=== PATIENT | male | born 1965 | race Caucasian/White ===

== ENCOUNTER → 2018-04-09 | Outpatient (CLI) | payer OTHER ==
--- NOTE | 2018-04-09 16:46 | DIAGNOSTIC IMAGING REPORT ---
MRI OF THE LUMBAR SPINE WITHOUT CONTRAST CLINICAL HISTORY: Low back pain radiating into right lower extremity. COMPARISON STUDY: Lumbar spine radiographs March 21, 2018. TECHNIQUE: Utilizing a 1.5 Tianna magnet and dedicated coil, multiplanar, multiecho imaging of the lumbar spine was performed without IV contrast. FINDINGS: For purposes of numbering, the L5-S1 disc space is assigned to axial image 27 of 30. There is 3 mm of retrolisthesis of L3 on L4. Vertebral body heights are maintained. There are discogenic changes with disc space narrowing at L3-L4. There is no suspicious marrow replacement. There is no intracanalicular mass or fluid collection. The conus terminates at the upper L2 level. Paravertebral soft tissues are unremarkable. Rehabilitation Clerk images demonstrate an apparent 5.3 cm hyperintense focus within the inferior right hepatic lobe which is probably artifactual. There is an equivocal 1.4 cm round focus within the pancreatic tail. L1-2: The central canal and neural foramen are patent. L2-3: There is disc space narrowing with disc bulge, ligamentous hypertrophy and facet arthrosis. There is mild narrowing of the central canal, lateral recesses. Neural foramen are patent. L3-4: There is disc bulge with a superimposed right paracentral disc protrusion that results in moderate narrowing of the right aspect of the canal and right lateral recess. There is mild narrowing of both neural foramen. L4-5: There is disc space narrowing and facet arthrosis. Central canal is patent. There is mild narrowing of both neural foramen. L5-S1: Central canal and neural foramen are patent. IMPRESSION: 1. Disc bulge with superimposed right paracentral disc protrusion at L3-L4 that results in moderate to severe narrowing of the right lateral recess with mass effect upon the descending right L4 nerve root. 2. Mild central canal and lateral recess narrowing at L2-L3 due to disc bulge. 3. Equivocal 5.3 cm hyperintense focus within the right hepatic lobe and 1.4 cm round density within the pancreatic tail shown only on product development director images. These findings are probably artifactual however a follow-up contrast-enhanced CT of the abdomen is recommended to exclude true abnormalities. Electronically signed by: Jarek Key M.D. 04/09/2018 4:45 PM Dictated Date/Time: 04/09/2018 4:35 PM
== END | disposition home or self-care (01) ==
LOC: C.MRIBC 15:34
PROVIDERS: ATTEND Orthopaedic Surgery
DX: M54.9 Dorsalgia, unspecified (principal); M79.604 Pain in right leg; M51.26 Other intervertebral disc displacement, lumbar region; R93.2 Abnormal findings on diagnostic imaging of liver and biliary tract

== ENCOUNTER 2019-05-10 10:00 | Inpatient (IN) ==
[2019-05-10] MEDS ORDERED: dilTIAZem HCl 5 MG/ML 5 ML VIAL IV STA (10:33)
--- NOTE | 2019-05-10 10:59 | XRay Report ---
XR chest 1V portable CLINICAL HISTORY: 54 years-old Male presenting with tachycardia, atrial fibrillation. TECHNIQUE: Portable upright AP view of the chest was obtained. COMPARISON: None. FINDINGS: Cardiac silhouette borderline enlarged. No focal opacity. No large effusion or pneumothorax. Osseous structures normal. Upper abdomen normal. IMPRESSION: 1. Borderline cardiomegaly. No other convincing evidence of acute cardiopulmonary disease. Electronically signed by: Rik Pinon M.D. 05/10/2019 10:58 AM
[2019-05-10 11:09] LABS: Alanine Aminotransferase 38 U/L (12-78); Albumin Level 4.6 gm/dl (3.4-5.0); Aspartate Aminotransferase 34 U/L (15-37); BUN Creatinine Ratio 12.9 (10-20); Blood Urea Nitrogen 15 mg/dl (7-18); Calcium 9.6 mg/dl (8.5-10.1); Carbon Dioxide 24 mmol/L (21-32); Chloride 107 mmol/L (98-107); Creatinine Clr Calc Pharmacy 96.8 ml/min; Est GFR (African American) 81.1; Glucose 88 mg/dl (70-99); Magnesium 2.2 mg/dl (1.8-2.4); Potassium 4.1 mmol/L (3.5-5.1); Sodium 140 mmol/L (136-145)
[2019-05-10 11:10] LABS: Basophils # (auto) 0.01 K/uL (0-0.2); Basophils % (auto) 0.1 %; Eosinophils # (auto) 0.02 K/uL (0-0.5); Eosinophils % (auto) 0.2 %; Hematocrit (blood only) 49.2 % (42-52); Hemoglobin 17.2 g/dL (14.0-18.0); Immature Granulocytes # (auto) 0.02 K/uL (0.00-0.02); Immature Granulocytes % (auto) 0.2 %; Lymphocytes # (auto) 1.11 K/uL (1.2-3.4); Lymphocytes % (auto) 12.4 %; Mean Corpuscular Hemoglobin 30.8 pg (25-34); Monocytes # (auto) 0.54 K/uL (0.11-0.59); Neutrophils # (auto) 7.26 K/uL (1.4-6.5); Neutrophils % (auto) 81.1 %; Platelet Count 154 K/uL (130-400); RDW Coefficient of Variation 12.5 % (11.5-14.5); RDW Standard Deviation 39.9 fL (36.4-46.3); Red Blood Count 5.59 M/uL (4.7-6.1); White Blood Count 8.96 K/uL (4.8-10.8)
[2019-05-10 11:14] LABS: Albumin Globulin Ratio 1.5 (0.9-2); Alkaline Phosphatase 68 U/L (45-117); Bilirubin,Total 0.9 mg/dl (0.2-1); Globulin 3.1 gm/dl (2.5-4.0); Thyroid Stimulating Hormone 0.941 uIu/ml (0.300-4.500); Total Protein 7.7 gm/dl (6.4-8.2); Troponin I < 0.015 ng/ml (0-0.045)
[2019-05-10 11:14] LABS: INR 1.1 (0.9-1.1); Prothrombin Time 10.8 Seconds (9.0-12.0)
[2019-05-10] MEDS ORDERED: dilTIAZem HCL 125 MG in DEXTROSE 5% 100 ML IV SCH (13:00)
[2019-05-10] MEDS ORDERED: Heparin IV Standard *NO* Bolus IV ONE (13:29)
[2019-05-10] MEDS ORDERED: HEPARIN SODIUM/DEXTROSE 25,000 UNITS/500 ML BAG IV SCH (13:30)
--- NOTE | 2019-05-10 13:37 | History & Physical Report ---
Date of Service May 10, 2019 Assessment & Plan (1) Atrial fibrillation with RVR: This is a 54-year-old male who has significant PMH of HTN, HLD, chronic back pain, MEY, obesity, gout who presents to [facility] from preop secondary to new onset A. fib. Unknown duration CBC, CMP, Mag, TSH relatively unremarkable CXR cardiomegaly but no acute process Received IV Diltiazem 10mg in ED, HRs 80-110s Initiated on Dilt gtt admit to PCU continue diltiazem gtt and wean as able start metoprolol 25mg q6h with hold parameters IV Heparin gtt ordered - chadsvasc 1, but given unknown duration will anticoagulate echocardiogram ordered consult cardiology (2) HTN (hypertension): blood pressure controlled, 129/98 continue felodipine hold lisinopril/hctz until re evaluated in a.m. initiating metoprolol tartrate for rate control (3) HLD (hyperlipidemia): continue statin (4) Gout: continue allopurinol (5) Lumbar radiculopathy: continue tramadol bid, cymbalta, gabapentin (6) Positional sleep apnea: follows [facility] sleep medicine to follow up 05/30/19, not on CPAP at this time (7) DVT prophylaxis: SCD/TEDS, IV Heparin Disposition: Admit to tele, discharge home when able Follow up: PCP Dr. Jasso upon discharge, appropriate cardiology follow up, follow up sleep medicine to determine need for CPAP Patient was seen and examined in collaboration with Dr. Mariscal, please see addendum Starting 05/11/19 patient will be under the care of Dr. Still History of Present Illness Chief Complaint: referred from pre op 2/2 to new onset afib with RVR. Primary Care Provider: Garcia Jasso, DO This is a 54-year-old male who has significant PMH of HTN, HLD, chronic back pain, MEY, obesity, gout who presents to [facility] from preop secondary to new onset A. fib. is at bedside. Last evening patient performed prep for colonoscopy who presented for procedure today. Was found to be in A. fib with RVR and therefore referred to ED. He is asymptomatic. Denies history of arrhythmia or A. fib in the past. Denies fever, chills, sweats, lightheadedness, dizziness, syncope, chest pain, palpitations, shortness of breath, cough, nausea, vomiting, diarrhea, abdominal pain. He did have loose bowels last night secondary to prep. He denies ETOH use, recreational drug use, recent travel. Denies FH of arrhythmia or ID, but father when patient was only 4 due to, "heart failure." Allergies Allergy/AdvReac Type Severity Reaction Status Date / Time No Known Allergies Allergy Unverified 05/10/19 10:39 Home Medications Home Medications Medication Instructions Recorded Confirmed Type allopurinol 300 mg tablet 300 mg PO QAM 04/19/18 05/10/19 History simvastatin 20 mg tablet 20 mg PO QPM 04/19/18 05/10/19 History tramadol 50 mg tablet 50 mg PO BID tab 04/19/18 05/10/19 History duloxetine [Cymbalta] 20 mg PO DAILY 05/10/19 05/10/19 History felodipine 2.5 mg PO DAILY 05/10/19 05/10/19 History gabapentin 300 mg PO TID 05/10/19 05/10/19 History lisinopril-hydrochlorothiazide 1 tab PO DAILY 05/10/19 05/10/19 History Past Med/Surg History Medical History Positional sleep apnea (Chronic) Lumbar disc herniation (Chronic) Right L3-L4 disc herniation impinging on the right L4 nerve root Lumbar radiculopathy (Chronic) Gout (Acute) HTN (hypertension) (Acute) Surgical History History of colonoscopy (Chronic) History of removal of cyst (Chronic) Family History Father Congestive heart failure (CHF) Mother Breast cancer Social History Preferred Language: Romanian Communication Ability: Effective 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: No Beliefs That Will Affect Care: None marital status: Current Living Situation: Spouse current occupational status: employed 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 Other Information That Helps Us Care for You: No Feels Safe at Home: Yes Safety Concerns: Feels Safe At This Time Smoking Status: Never smoker Do You Dip or Chew Tobacco: No ; Hx Alcohol Use: No Hx Substance Use: No Review of Systems Review of Systems: All systems reviewed & are unremarkable except as noted in HPI & below Physical Exam Physical Exam: Constitutional: WD/WN, Tall, Male, vitals as above, NAD, sitting up in bed, pleasant, conversing easily Head: Normocephalic, Atraumatic Eyes: PERRL, conjunctivae normal, anicteric sclerae ENMT: external ear and nose normal, oropharynx normal Neck: trachea midline, no thyromegaly normal visual inspection Respiratory: normal respiratory effort, lungs clear to auscultation, no wheeze, rales, rhonchi. Normal insp/exp effort, no accessory muscle use Cardiovascular: IRR/IRR, no murmur, no edema Vessels: no JVD or carotid bruit Chest: normal inspection of chest Abdomen: normal bowel sounds, soft, nontender, no hepatosplenomegaly Musculoskeletal: no cyanosis or clubbing, extremities motor strength 5/5 Skin: no rashes, warm and dry normal turgor Neurologic: PERRL, EOMI, accommodation nl, no face palsy, no dysarthria CN's II-XI intact bilaterally and moves all extremities Psychiatric: A+Ox3, euthymic affect Lymphatic: no cervical or axillary lymphadenopathy : deferred Results & Data Vital Signs (Past 12 Hours) Vital Signs Pulse Pulse Resp BP BP Pulse Ox 05/10/19 12:46 89 15 120/89 99 05/10/19 12:00 82 14 124/98 98 05/10/19 11:30 82 15 123/83 98 05/10/19 11:07 108 H 16 137/97 97 05/10/19 10:14 87 18 139/99 98 Laboratory Results Short CBC 05/10/19 05/10/19 Range/Units 10:31 10:47 WBC 8.96 (4.8-10.8) K/uL Hgb 17.2 (14.0-18.0) g/dL Hct 49.2 (42-52) % Plt Count 154 (130-400) K/uL Creatinine 1.16 (0.6-1.4) mg/dl TSH 0.941 (0.300-4.500) uIu/ml BMP 05/10/19 10:31 Sodium 140 Potassium 4.1 Chloride 107 Carbon Dioxide 24 BUN 15 Creatinine 1.16 Glucose 88 Calcium 9.6 Cardiac Enzymes 05/10/19 Range/Units 10:31 Troponin I < 0.015 (0-0.045) ng/ml Liver Function 09/27/19 Range/Units 10:31 Total Bilirubin 0.9 (0.2-1) mg/dl AST 34 (15-37) U/L ALT 38 (12-78) U/L Alkaline Phosphatase 68 (45-117) U/L Albumin 4.6 (3.4-5.0) gm/dl Diagnostic Findings CXR: IMPRESSION: 1. Borderline cardiomegaly. No other convincing evidence of acute cardi opulmonary disease. Medications Administered Discontinued Medications Diltiazem HCl (Cardizem) 10 mg IV NOW STA Stop: 05/10/19 10:34 Last Admin: 05/10/19 11:08 Dose: 10 mg Documented by: [id number] Cosigned by: [id number] ECG Rate (beats per minute): 114 Rhythm: atrial fibrillation Code Status & VTE Plan Code Status Full Code VTE Prophylaxis Plan VTE Prophylaxis will be ordered: Yes Supervising Physician Co-Signing Physician Notes I saw this patient with the physician nurses assistant, I participated in the history, physical, review of systems, and physical exam. I reviewed the medications with the patient and the physician nurses assistant and helped reconcile the medications. I helped take a detailed family and social history as well. I formulated the assessment and plan personally with the physician nurses assistant and went over it with the patient. ROS-No Headache, No Visual Changes, No Nausea, No Vomiting, No Fever, No Chills, No Neck Pain or Stiffness, No Chest Pain, No Palpitations, No SOB, No MEDRANO, No Cough, No Sputum, No Wheezing, No Abdominal Pain, No Diarrhea, No Hematemesis, No Hemoptysis, No Unexpected Weight Loss, No Flank pain, No Melena, No Hematochezia, No Frequency, No Urgency, No Burning, No Hematuria, No Rashes, No Diaphoresis. Appetite is Normal Physical Exam Gen-AAO x 3, NAD, Afebrile Head-NCAT, EOMI, PERRLA, Anicteric Sclera, No Posterior Pharyngeal Erythema Neck-Supple, No JVD, No Thyromegaly, No Masses, No LAD, No Bruits Lungs-Clear to Auscultation Bilaterally, No Rales, No Rhonchi, No Wheezing, No Crepitus Chest-Irreg, Irreg, No S4, +S1, +S2, No S3, No Murmurs, No Rubs, No Gallops, + Ectopy Abdomen-Soft, Bowel Sounds Present, Non Tender, Non Distended, No Hepatomegaly, No Splenomegaly, No Palpable Masses, No Rebound, No Rigidity, No Guarding Musculoskeletal-Full Range of Motion Bilaterally, No CVAT Extremities-No Cyanosis, No Clubbing, No Edema Nuero-Cranial Nerves II-XII grossly intact, Motor WNL, DTRs WNL, Strength WNL, Non Focal Psych-Normal Mood
[2019-05-10] MEDS ORDERED: MAGNESIUM HYDROXIDE SUSP 30 ML UDC PO PRN (14:53)
[2019-05-10] MEDS ORDERED: ALUMINUM/MAGNESIUM SUSP 30 ML UDC PO PRN (14:53)
[2019-05-10] MEDS ORDERED: POLYETHYLENE (MIRALAX) 17 GM PACK PO PRN (14:53)
[2019-05-10] MEDS ORDERED: ACETAMINOPHEN 325 MG TAB PO PRN (14:53)
[2019-05-10] MEDS ORDERED: ONDANSETRON INJ 2 MG/ML 2 ML VIAL IV PRN (14:53)
--- NOTE | 2019-05-10 15:58 | Cardiology Consultation ---
Date of Consultation May 10, 2019 Assessment & Plan (1) Atrial fibrillation with RVR: Is difficult to determine the duration of his atrial fibrillation. He had a previous EKG in 2016 that revealed sinus bradycardia. He does not have any subjective symptoms. It could be that this occurred with his colonoscopy prep overnight last night, or perhaps he has had atrial fibrillation for a longer duration. He has had recent outpatient visits at which time an irregular heartbeat had not been detected. We will proceed with an echocardiogram for assessment of structural heart disease. EKG reveals no significant repolarization changes, and he certainly has no symptoms suggestive of recent angina. Rate control: Patient is currently on a low-dose diltiazem infusion with adequately controlled heart rates in the range of 98 bpm. Metoprolol tartrate 25 mg p.o. every 6 has been initiated and will be adjusted as necessary based on response. Stroke prophylaxis: His [id number] score is 1 for hypertension predicting a low risk of cardio embolic stroke however it is difficult to know at this point if this is going to be an episode of lone atrial fibrillation or an ongoing issue. Therefore systemic anticoagulation is recommended pending further assessment including his echocardiogram to rule out cardiomyopathy. I [facility], and the anticipated [id number] cost for a 30-day supply of Eliquis 5 mg twice daily is $42. The patient states that that is acceptable. Therefore I am going to discontinue his heparin infusion at 2190 and transition him to Eliquis 5 mg twice daily. The patient's electrolytes are within normal limits. Plan on observing him on telemetry overnight. (2) HTN (hypertension): Continue prior to hospital dose of felodipine. His lisinopril/HCTZ has been placed on hold pending further assessment. Metoprolol tartrate added for rate control and blood pressure control. (3) HLD (hyperlipidemia): Continue prior to arrival of simvastatin. History of Present Illness Attending Physician: Jeff Mariscal DO History of Present Illness Rubén Simpson is a 54 year old male seen in cardiology consultation per the request of Niesha Zavlaa PA-C [facility] for the evaluation of atrial fibrillation. The patient presented to [facility] today for a routine screening colonoscopy and was found to be in atrial fibrillation on the gambling monitor. A 12-lead EKG was obtained at 854 this m orning that confirmed the presence of atrial fibrillation with rapid ventricular response at 123 bpm. The patient was referred for evaluation in the emergency room at the [facility]. The patient states he is asymptomatic from a cardiac perspective. He describes himself as being physically active at baseline he walks his dog, forms yardwork, and walks on the treadmill 3-4 times per week. The patient's past medical history is notable for hypertension. He is currently being evaluated for sleep apnea due to his history of snoring,. He had recently been seen by sleep medicine and a sleep study is tentatively scheduled but has not been completed yet. He takes medication for dyslipidemia. Family history: Patient's mother due to cancer at age 75, he does not know what the primary source was but she had significant cancer that had spread throughout her body at the time of when she . The patient's father at age 43 apparently of congestive heart failure. The patient was 4 years old and this occurred and he does not know any details. The patient has siblings without any issues of heart disease. 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 Allergies Allergy/AdvReac Type Severity Reaction Status Date / Time No Known Allergies Allergy Unverified 05/10/19 10:39 Home Medications Home Medications Medication Instructions Recorded Confirmed Type allopurinol 300 mg tablet 300 mg PO QAM 04/19/18 05/10/19 History simvastatin 20 mg tablet 20 mg PO QPM 04/19/18 05/10/19 History tramadol 50 mg tablet 50 mg PO BID tab 04/19/18 05/10/19 History duloxetine [Cymbalta] 20 mg PO DAILY 05/10/19 05/10/19 History felodipine 2.5 mg PO DAILY 05/10/19 05/10/19 History gabapentin 300 mg PO TID 05/10/19 05/10/19 History lisinopril-hydrochlorothiazide 1 tab PO DAILY 05/10/19 05/10/19 History Patient History Medical History Positional sleep apnea (Chronic) Lumbar disc herniation (Chronic) Right L3-L4 disc herniation impinging on the right L4 nerve root Lumbar radiculopathy (Chronic) Gout (Acute) HTN (hypertension) (Acute) Surgical History History of colonoscopy (Chronic) History of removal of cyst (Chronic) Family History Father Congestive heart failure (CHF) Mother Breast cancer Social History Preferred Language: [place]ese Communication Ability: Effective 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 Beliefs That Will Affect Care: None marital status: Current Living Situation: Spouse current occupational status: employed 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 Other Information That Helps Us Care for You: No Feels Safe at Home: Yes Safety Concerns: Feels Safe At This Time Smoking Status: Never smoker Do You Dip or Chew Tobacco: No ; Hx Alcohol Use: No Hx Substance Use: No Review of Systems Review of Systems: All systems reviewed & are unremarkable except as noted in HPI & below Physical Exam Physical Exam: Temp Pulse Resp BP Pulse Ox 36.9 C 100 H 18 135/84 99 05/10/19 14:53 05/10/19 14:53 05/10/19 14:53 05/10/19 14:53 05/10/19 14:53 Constitutional: WD/WN, vitals as above Respiratory: normal respiratory effort, lungs clear to auscultation Cardiovascular: Rate/Rhythm: + irregularly irregular Heart Sounds: no murmur and no cardiac rub Vessels: no JVD Gastrointestinal (Abdomen): normal bowel sounds, soft, nontender, no hepatosplenomegaly Neurologic: PERRL, EOMI, accommodation nl, no face palsy, no dysarthria Results & Data Vital Signs (Past 12 Hours) Vital Signs Temp Pulse Pulse Resp BP BP Pulse Ox 05/10/19 14:53 36.9 C 100 H 18 135/84 99 05/10/19 14:45 120 H 15 137/90 98 05/10/19 14:30 112 H 15 122/75 99 05/10/19 14:15 105 H 20 117/93 96 05/10/19 14:00 102 H 23 129/98 99 05/10/19 12:46 89 15 120/89 99 05/10/19 12:00 82 14 124/98 98 05/10/19 11:30 82 15 123/83 98 05/10/19 11:07 108 H 16 137/97 97 05/10/19 10:14 87 18 139/99 98 Laboratory Results Cardiac Enzymes 05/10/19 Range/Units 10:31 AST 34 (15-37) U/L Troponin I < 0.015 (0-0.045) ng/ml Coagulation 05/10/19 05/10/19 Range/Units 10:47 10:47 PT 10.8 (9.0-12.0) Seconds APTT 28.0 (21.0-31.0) Seconds CBC 05/10/19 Range/Units 10:47 WBC 8.96 (4.8-10.8) K/uL RBC 5.59 (4.7-6.1) M/uL Hgb 17.2 (14.0-18.0) g/dL Hct 49.2 (42-52) % Plt Count 154 (130-400) K/uL Neut # (Auto) 7.26 H (1.4-6.5) K/uL Lymph # (Auto) 1.11 L (1.2-3.4) K/uL [place] # (Auto) 0.54 (0.11-0.59) K/uL Eos # (Auto) 0.02 (0-0.5) K/uL Baso # (Auto) 0.01 (0-0.2) K/uL Comprehensive Metabolic Panel 05/10/19 Range/Units 10:31 Sodium 140 (136-145) mmol/L Potassium 4.1 (3.5-5.1) mmol/L Chloride 107 (98-107) mmol/L Carbon Dioxide 24 (21-32) mmol/L BUN 15 (7-18) mg/dl Creatinine 1.16 (0.6-1.4) mg/dl Glucose 88 (70-99) mg/dl Calcium 9.6 (8.5-10.1) mg/dl AST 34 (15-37) U/L ALT 38 (12-78) U/L Alkaline Phosphatase 68 (45-117) U/L Total Protein 7.7 (6.4-8.2) gm/dl Albumin 4.6 (3.4-5.0) gm/dl Intake and Output 05/10/19 05/10/19 05/10/19 06:59 14:59 22:59 Other: Weight 114 kg Patient Weight 05/11/19 06:59 Weight 114 kg
[2019-05-10] MEDS: METOPROLOL TARTRATE 25 MG TAB PO SCH ×2 (16:29→21:22)
--- NOTE | 2019-05-10 17:49 | Emergency Department Note ---
Entered by Ney Jordan acting as a scribe for History of Present Illness General Chief complaint: Arrhythmia/Palpitations Stated complaint: AFIB Source: patient History of Present Illness Onset (ago): hour(s) (this morning) Location: chest Pain Consistency: + other (episode) Maximum Pain Intensity: 5 Quality: + other (arrhythmia ) Associated symptoms: + headaches (slight) and + other (+dehydration; - palpitations); no chest pain and no shortness of breath The patient is a 54 year old male, with past medical history of hypertension, who presents to the Emergency Room with complaints of an episode of arrhythmia that was first noticed 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 The patient states he was at his grain unloader's office for a routine colon oscopy when the arrhythmia was first noted. The patient denies chest pain, feeling palpitations, or shortness of breath. The patient notes a slight headache and dehydration. The patient denies personal or family history of atrial fibrillation, but he notes his father dies of congestive heart failure. The patient denies taking aspirin, but he notes he takes lisinopril and amlodipine for hypertension. The patient notes he typically drinks a couple cups of coffee each morning, and the patient states he does not drink alcohol anymore. He notes his PCP is Dr. Jasso. Home Medications Home Medications Medication Instructions Recorded Confirmed Type allopurinol 300 mg tablet 300 mg PO QAM 04/19/18 05/10/19 History simvastatin 20 mg tablet 20 mg PO QPM 04/19/18 05/10/19 History tramadol 50 mg tablet 50 mg PO BID tab 04/19/18 05/10/19 History duloxetine [Cymbalta] 20 mg PO DAILY 05/10/19 05/10/19 History felodipine 2.5 mg PO DAILY 05/10/19 05/10/19 History gabapentin 300 mg PO TID 05/10/19 05/10/19 History lisinopril-hydrochlorothiazide 1 tab PO DAILY 05/10/19 05/10/19 History Allergies Allergy/AdvReac Type Severity Reaction Status Date / Time No Known Allergies Allergy Unverified 05/10/19 10:39 Past Med/Surg History Medical History Positional sleep apnea (Chronic) Lumbar disc herniation (Chronic) Right L3-L4 disc herniation impinging on the right L4 nerve root Lumbar radiculopathy (Chronic) Gout (Acute) HTN (hypertension) (Acute) Surgical History History of colonoscopy (Chronic) History of removal of cyst (Chronic) Family History Father Congestive heart failure (CHF) Mother Breast cancer Social History Preferred Language: Kiswahili Communication Ability: Effective 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 and A total of 10 systems reviewed and were otherwise negative Physical Exam Vital Signs Vital Signs - 24 hr 05/10/19 10:14 05/10/19 11:07 05/10/19 11:30 Temperature Source Oral Sepsis Recent Fever Within 48 Hours No Sepsis New/Unexplained Change in Mental Status No Sepsis Action Taken by Nursing No Action Required Pulse Rate 87 Pulse Rate [Left Finger] 108 H 82 Pulse Rhythm Regular Pulse Rhythm [Left Finger] Pulse Strength Normal Respiratory Rate 18 16 15 Respiratory Effort / Characteristics Non-Labored Spontaneous Non-Labored Non-Labored Respiratory Depth Normal Normal Normal Respiratory Pattern Regular Regular Regular Blood Pressure 139/99 Blood Pressure [Left Arm] 137/97 123/83 Blood Pressure Mean 112 Blood Pressure Mean [Left Arm] 110 96 Blood Pressure Position Sitting Pulse Oximetry 98 97 98 Oxygen Delivery Method Room Air Room Air Room Air 05/10/19 12:00 05/10/19 12:46 Temperature Source Sepsis Recent Fever Within 48 Hours Sepsis New/Unexplained Change in Mental Status Sepsis Action Taken by Nursing Pulse Rate Pulse Rate [Left Finger] 82 89 Pulse Rhythm Pulse Rhythm [Left Finger] Regular Pulse Strength Respiratory Rate 14 15 Respiratory Effort / Characteristics Non-Labored Non-Labored Respiratory Depth Normal Normal Respiratory Pattern Regular Regular Blood Pressure Blood Pressure [Left Arm] 124/98 120/89 Blood Pressure Mean Blood Pressure Mean [Left Arm] 106 99 Blood Pressure Position Pulse Oximetry 98 99 Oxygen Delivery Method Room Air Room Air GENERAL: Awake, alert, well-appearing, in no distress HENT: Normocephalic, atraumatic. EYES: Normal conjunctiva. Sclera non-icteric. RESPIRATORY: Clear to auscultation. No wheezes. Normal respiratory effort. CARDIAC: Tachycardic rate. Irregularly irregular rhythm. Extremities warm and well perfused. GI: Soft, non-distended. No tenderness to palpation. RECTAL: Deferred. MUSCULOSKELETAL: Atraumatic. Chest examination reveals no tenderness. LOWER EXTREMITIES: Calves are equal size bilaterally and non-tender. No edema NEURO: Normal sensorium. No sensory or motor deficits noted. No facial droop. SKIN: Warm and dry. No rash or jaundice noted. Course 1026: Past medical records reviewed. The patient was evaluated in room C6. A complete history and physical exam was performed. 1254: I reviewed the patient's case with Mary Huff. [facility] for further management. Consultations Consultation #1: I reviewed the patient's case with Mary Huff. Dr. Mariscal-Keshia Pascal will evaluate the patient for further management. Time: 12:54 Administered Medications Heparin Sodium/Dextrose (Heparin Sodium/Dextrose) 25,000 units in 500 mls @ 35 mls/hr IV .[id number] BENITO; Protocol Stop: 05/10/19 21:00 Last Admin: 05/10/19 13:58 Dose: 1,750 units/hr, 35 mls/hr Documented by: [id number] Cosigned by: [id number] Metoprolol Tartrate (Lopressor) 25 mg PO Q6H BENITO Stop: 06/09/19 15:59 Last Admin: 05/10/19 16:29 Dose: 25 mg Documented by: [id number] Discontinued Medications Diltiazem HCl (Cardizem) 10 mg IV NOW STA Stop: 05/10/19 10:34 Last Admin: 05/10/19 11:08 Dose: 10 mg Documented by: [id number] Cosigned by: [id number] Heparin Sodium/Dextrose () 1 ea IV ONE ONE; Protocol Stop: 05/10/19 13:30 Last Admin: 05/10/19 14:23 Dose: Not Given Documented by: [id number] Diltiazem HCl 125 mg/ Dextrose 125 mls @ 5 mls/hr IV .Q24H BENITO; Protocol Stop: 06/09/19 12:59 Last Admin: 05/10/19 13:58 Dose: 5 mg/hr, 5 mls/hr Documented by: [id number] Cosigned by: [id number] Medical Decision Making Differential Diagnosis Differential diagnosis: Etiologies such as premature contractions, electrolyte abnormality, cardiac dysrhythmia, thyroid dysfunction, pulmonary embolism, infection, gastroint estinal, as well as others were entertained. Medical Records Attestation: I reviewed the patient's medical records. Home Medications Current Medication List: was personally reviewed by me Laboratory Data Attestation: I reviewed the patient's lab results. Result diagrams: 05/10/19 10:47 05/10/19 10:31 Lab Results 05/10/19 05/10/19 05/10/19 Range/Units 10:31 10:47 10:47 WBC 8.96 (4.8-10.8) K/uL RBC 5.59 (4.7-6.1) M/uL Hgb 17.2 (14.0-18.0) g/dL Hct 49.2 (42-52) % MCV 88.0 (80-100) fL MCH 30.8 (25-34) pg MCHC 35.0 (32-36) g/dL RDW Std Deviation 39.9 (36.4-46.3) fL RDW Coeff of Jaswant 12.5 (11.5-14.5) % Plt Count 154 (130-400) K/uL MPV 12.0 H (7.4-10.4) fL Immature Gran % (Auto) 0.2 % Neut % (Auto) 81.1 % Lymph % (Auto) 12.4 % [place] % (Auto) 6.0 % Eos % (Auto) 0.2 % Baso % (Auto) 0.1 % Immature Gran # (Auto) 0.02 (0.00-0.02) K/uL Neut # (Auto) 7.26 H (1.4-6.5) K/uL Lymph # (Auto) 1.11 L (1.2-3.4) K/uL [place] # (Auto) 0.54 (0.11-0.59) K/uL Eos # (Auto) 0.02 (0-0.5) K/uL Baso # (Auto) 0.01 (0-0.2) K/uL PT 10.8 (9.0-12.0) Seconds INR 1.1 (0.9-1.1) APTT (21.0-31.0) Seconds PTT Ratio Sodium 140 (136-145) mmol/L Potassium 4.1 (3.5-5.1) mmol/L Chloride 107 (98-107) mmol/L Carbon Dioxide 24 (21-32) mmol/L Anion Gap 9.0 (3-11) BUN 15 (7-18) mg/dl Creatinine 1.16 (0.6-1.4) mg/dl Est Cr Clr Drug Dosing 96.8 ml/min Est GFR ( Amer) 81.1 Est GFR (Non-Af Amer) 70.0 BUN/Creatinine Ratio 12.9 (10-20) Glucose 88 (70-99) mg/dl Calcium 9.6 (8.5-10.1) mg/dl Magnesium 2.2 (1.8-2.4) mg/dl Total Bilirubin 0.9 (0.2-1) mg/dl AST 34 (15-37) U/L ALT 38 (12-78) U/L Alkaline Phosphatase 68 (45-117) U/L Troponin I < 0.015 (0-0.045) ng/ml Total Protein 7.7 (6.4-8.2) gm/dl Albumin 4.6 (3.4-5.0) gm/dl Globulin 3.1 (2.5-4.0) gm/dl Albumin/Globulin Ratio 1.5 (0.9-2) TSH 0.941 (0.300-4.500) uIu/ml Specimen Hemolysis 05/10/19 Range/Units 10:47 WBC (4.8-10.8) K/uL RBC (4.7-6.1) M/uL Hgb (14.0-18.0) g/dL Hct (42-52) % MCV (80-100) fL MCH (25-34) pg MCHC (32-36) g/dL RDW Std Deviation (36.4-46.3) fL RDW Coeff of Jaswant (11.5-14.5) % Plt Count (130-400) K/uL MPV (7.4-10.4) fL Immature Gran % (Auto) % Neut % (Auto) % Lymph % (Auto) % [place] % (Auto) % Eos % (Auto) % Baso % (Auto) % Immature Gran # (Auto) (0.00-0.02) K/uL Neut # (Auto) (1.4-6.5) K/uL Lymph # (Auto) (1.2-3.4) K/uL [place] # (Auto) (0.11-0.59) K/uL Eos # (Auto) (0-0.5) K/uL Baso # (Auto) (0-0.2) K/uL PT (9.0-12.0) Seconds INR (0.9-1.1) APTT 28.0 (21.0-31.0) Seconds PTT Ratio 1.0 Sodium (136-145) mmol/L Potassium (3.5-5.1) mmol/L Chloride (98-107) mmol/L Carbon Dioxide (21-32) mmol/L Anion Gap (3-11) BUN (7-18) mg/dl Creatinine (0.6-1.4) mg/dl Est Cr Clr Drug Dosing ml/min Est GFR ( Amer) Est GFR (Non-Af Amer) BUN/Creatinine Ratio (10-20) Glucose (70-99) mg/dl Calcium (8.5-10.1) mg/dl Magnesium (1.8-2.4) mg/dl Total Bilirubin (0.2-1) mg/dl AST (15-37) U/L ALT (12-78) U/L Alkaline Phosphatase (45-117) U/L Troponin I (0-0.045) ng/ml Total Protein (6.4-8.2) gm/dl Albumin (3.4-5.0) gm/dl Globulin (2.5-4.0) gm/dl Albumin/Globulin Ratio (0.9-2) TSH (0.300-4.500) uIu/ml Specimen Hemolysis Imaging Data Radiologist's Impression: Radiology results as stated below per my review and the radiologist's interpretation: XR chest 1V portable CLINICAL HISTORY: 54 years-old Male presenting with tachycardia, atrial fibrillation. TECHNIQUE: Portable upright AP view of the chest was obtained. COMPARISON: None. FINDINGS: Cardiac silhouette borderline enlarged. No focal opacity. No large effusion or pneumothorax. Osseous structures normal. Upper abdomen normal. IMPRESSION: 1. Borderline cardiomegaly. No other convincing evidence of acute cardiopulmonary disease. Electronically signed by: Rik Pinon M.D. 05/10/2019 10:58 AM ECG Data Attestation: I personally reviewed and interpreted this ECG as follows: Indication: palpitations Rate (beats per minute): 114 Rhythm: atrial fibrillation (with RVR) Findings: no ST depression and no ST elevation Blood Pressure Blood Pressure Findings: Elevated blood pressure Blood Pressure Disposition: further management by hospitalist DALIA Narrative Patient is a 54-year-old gentleman presenting to the emergency department complaining of palpitations. Has a history of lumbar radiculopathy, hypertension, and gout. Patient was undergoing prep last night for colonoscopy today for routine surveillance. While being evaluated for preop colonoscopy noted to be an irregular tachycardic rate. Sent here for further care. No history of atrial fibrillation. Appears to be in atrial fibrillation RVR. Blood pressure stable. Patient denies significant complaint. No chest pain. No evidence of heart failure at this time. Given some diltiazem for rate control. Reviewed the patient's risk factor and he is chads vascular score 1; will defer to hospitalist AC. EKG and troponin as well as electrolytes and thyroid studies were sent here. Chest x-ray is unremarkable. No signs of heart injury or failure. Laboratory studies are reassuring without significant abnormality. Patient had some improvement of heart rate but did continue intermittently to be tachycardic in the 110s. Given this discussed with him and recommend admission for new onset atrial fibrillation. Discussed with [facility] hospitalist. Impression & Plan Atrial fibrillation with RVR Critical Care Time Critical Care Time: Yes Total Critical Care Time: 35 I have personally spent 35 minutes of critical care time in the direct management of this patient. This includes bedside care, interpretation of diagnostic studies, and testing, discussion with consultants, patient, and family members, and other required patient management activities. This 35 minutes is in excess of all separately billable procedures. Discharge Plan Visit Data *Final* Discharge Date/Time: 05/10/19 14:31 Chief Complaint: Arrhythmia/Palpitations Stated Complaint: AFIB ED Provider: Charles Tyson Discharge Problem: Atrial fibrillation with RVR Patient Disposition: Admitted As Inpatient Discharge Instructions Interventions: ED Discharge Assessment Last Done: 05/10/19 14:31 The scribe's documentation has been prepared under my direction and personally reviewed by me in its entirety. I confirm that the note above accurately reflects all work, treatment, procedures, and medical decision making performed by me.
--- NOTE | 2019-05-10 17:59 | Communication Note ---
Date of Service: May 10, 2019 Echocardiogram reviewed: Atrial fibrillation was present during the echocardiogram. Left ventricular systolic function is normal. The LV Ejection Fraction = 60-65%. There are no LV wall motiona abnormalities. The right ventricular chamber size and systolic function are normal. There is no significant valvular heart disease. Doppler findings do not suggest pulmonary hypertension. Patient converted to sinus bradycardia in the mid 50 bpm range on 05/10/19 at 17:06. I discussed these telemetry findings with his nurse. Diltiazem infusion was discontinued. Continue oral metoprolol with holds. Continue with plan to transition from heparin to Eliquis at 2100.
[2019-05-10] MEDS: TRAMADOL HCL 50 MG TABLET PO SCH (20:02)
[2019-05-10] MEDS: GABAPENTIN 300 MG CAP PO SCH (20:03)
[2019-05-10] MEDS ORDERED: SIMVASTATIN 20 MG TAB PO SCH (21:00)
[2019-05-10] MEDS: APIXABAN 2.5 MG TAB PO SCH (21:06)
[2019-05-11] MEDS: METOPROLOL TARTRATE 25 MG TAB PO SCH (02:59)
[2019-05-11 06:27] LABS: Hematocrit (blood only) 43.5 % (42-52); Hemoglobin 15.3 g/dL (14.0-18.0); Mean Corpuscular Hemoglobin 31.2 pg (25-34); Mean Corpuscular Hgb Conc 35.2 g/dL (32-36); Mean Corpuscular Volume 88.6 fL (80-100); Mean Platelet Volume 12.3 fL (7.4-10.4); Platelet Count 144 K/uL (130-400); RDW Coefficient of Variation 12.6 % (11.5-14.5); RDW Standard Deviation 40.2 fL (36.4-46.3); Red Blood Count 4.91 M/uL (4.7-6.1); White Blood Count 6.73 K/uL (4.8-10.8)
[2019-05-11 07:06] LABS: BUN Creatinine Ratio 19.2 (10-20); Calcium 8.3 mg/dl (8.5-10.1); Creatinine Clr Calc Pharmacy 96.1 ml/min; Est GFR (African American) 80.3; Est GFR (Non-African American) 69.3; Potassium 3.5 mmol/L (3.5-5.1)
[2019-05-11] MEDS: TRAMADOL HCL 50 MG TABLET PO SCH (08:02)
[2019-05-11] MEDS: GABAPENTIN 300 MG CAP PO SCH (08:03)
[2019-05-11] MEDS: APIXABAN 2.5 MG TAB PO SCH (08:03)
[2019-05-11] MEDS ORDERED: allopurinoL 300 MG TAB PO SCH (09:00)
[2019-05-11] MEDS ORDERED: DULOXETINE HCL 20 MG CAP PO SCH (09:00)
[2019-05-11] MEDS ORDERED: METOPROLOL TARTRATE 25 MG TAB PO SCH (09:00)
[2019-05-11] MEDS ORDERED: FELODIPINE 2.5 MG TABCR PO SCH (09:00)
--- NOTE | 2019-05-11 09:31 | Cardiology Progress Note ---
Date of Service May 11, 2019 Assessment & Plan (1) Paroxysmal atrial fibrillation: (2) HTN (hypertension): (3) HLD (hyperlipidemia): I had a long conversation with the patient and his at bedside regarding his annual adjusted stroke rate per [id number] and CHADS2 scores. Duration of atrial fibrillation unknown prior to admission as patient is asymptomatic. Although his stroke risk is low, his score is not 0. We discussed continued observation without anticoagulation versus at least short-term anticoagulation with Eliquis. The risk versus benefits reviewed at length. Patient agreeable to continue Eliquis 5 mg twice daily. Metoprolol tartrate will be reduced to 25 mg twice daily. Recommend outpatient cardiology follow-up in 2 weeks with ambulatory monitoring for further assessment of atrial fibrillation burden. All questions answered satisfaction both patient and his . Thank you for allowing me to participate in the care of your patient Subjective Patient seen and examined at the bedside. Denies chest pain or unusual shortness of breath. Converted to sinus rhythm at 5 PM 05/10/2019. Patient sent to the emergency department yesterday from the same day surgery center at [facility]. Noted to be atrial fibrillation although asymptomatic. He was scheduled to undergo colonoscopy. Denies history of palpitations, chest pain, unusual shortness of breath. Exercises regularly and active around his home. No history of GI bleeding or falls. is present at bedside. She offers no additional concerns/complaints this time. Review of Systems Review of Systems: All systems reviewed & are unremarkable except as noted in HPI & below Physical Exam Physical Exam: General: NAD, AAO x3, well nourished. HEENT: Normocephalic. Atraumatic. Conjunctiva pink, no scleral icterus. Neck: No carotid bruits, the carotid upstrokes are brisk. No JVD. No HJR Heart: Regular normal S-1 and S-2 no S-3 or S-4 gallop. No murmurs or rub appreciated. PMI is not displaced. No RV heave. Lungs: Clear bilateral without rales , rhonchi, or wheeze. Abdomen: Normal bowel sounds. Soft. Nontender. No masses or organomegaly. No abdominal bruits. Extremities: No clubbing, cyanosis, or edema. Pulses: radial=2/4, Dorsalis pedis =2/4, posterior tibial=2/4. Neuro: Cranial nerves grossly intact. No focal motor deficit. Results & Data Vital Signs (Past 12 Hours) Vital Signs Temp Pulse Resp BP Pulse Ox 05/11/19 06:45 36.7 C 47 L 18 119/79 96 05/11/19 03:03 36.4 C L 46 L 17 120/73 96 05/11/19 00:01 36.6 C 48 L 18 121/72 97 Laboratory Results Laboratory Results - last 24 hr 05/10/19 05/10/19 05/10/19 10:31 10:47 10:47 WBC 8.96 RBC 5.59 Hgb 17.2 Hct 49.2 MCV 88.0 MCH 30.8 MCHC 35.0 RDW Std Deviation 39.9 RDW Coeff of Jaswant 12.5 Plt Count 154 MPV 12.0 H Immature Gran % (Auto) 0.2 Neut % (Auto) 81.1 Lymph % (Auto) 12.4 [place] % (Auto) 6.0 Eos % (Auto) 0.2 Baso % (Auto) 0.1 Immature Gran # (Auto) 0.02 Neut # (Auto) 7.26 H Lymph # (Auto) 1.11 L [place] # (Auto) 0.54 Eos # (Auto) 0.02 Baso # (Auto) 0.01 PT 10.8 INR 1.1 APTT PTT Ratio Sodium 140 Potassium 4.1 Chloride 107 Carbon Dioxide 24 Anion Gap 9.0 BUN 15 Creatinine 1.16 Est Cr Clr Drug Dosing 96.8 Est GFR ( Amer) 81.1 Est GFR (Non-Af Amer) 70.0 BUN/Creatinine Ratio 12.9 Glucose 88 Calcium 9.6 Magnesium 2.2 Total Bilirubin 0.9 AST 34 ALT 38 Alkaline Phosphatase 68 Troponin I < 0.015 Total Protein 7.7 Albumin 4.6 Globulin 3.1 Albumin/Globulin Ratio 1.5 TSH 0.941 Specimen Hemolysis Hepatitis C Ab Screen 05/10/19 05/11/19 05/11/19 10:47 05:55 05:55 WBC 6.73 RBC 4.91 Hgb 15.3 Hct 43.5 MCV 88.6 MCH 31.2 MCHC 35.2 RDW Std Deviation 40.2 RDW Coeff of Jaswant 12.6 Plt Count 144 MPV 12.3 H Immature Gran % (Auto) Neut % (Auto) Lymph % (Auto) [place] % (Auto) Eos % (Auto) Baso % (Auto) Immature Gran # (Auto) Neut # (Auto) Lymph # (Auto) [place] # (Auto) Eos # (Auto) Baso # (Auto) PT INR APTT 28.0 PTT Ratio 1.0 Sodium 141 Potassium 3.5 Chloride 109 H Carbon Dioxide 26 Anion Gap 6.0 BUN 22 H Creatinine 1.17 Est Cr Clr Drug Dosing 96.1 Est GFR ( Amer) 80.3 Est GFR (Non-Af Amer) 69.3 BUN/Creatinine Ratio 19.2 Glucose 90 Calcium 8.3 L Magnesium Total Bilirubin AST ALT Alkaline Phosphatase Troponin I Total Protein Albumin Globulin Albumin/Globulin Ratio TSH Specimen Hemolysis Hepatitis C Ab Screen 05/11/19 05:55 WBC RBC Hgb Hct MCV MCH MCHC RDW Std Deviation RDW Coeff of Jaswant Plt Count MPV Immature Gran % (Auto) Neut % (Auto) Lymph % (Auto) [place] % (Auto) Eos % (Auto) Baso % (Auto) Immature Gran # (Auto) Neut # (Auto) Lymph # (Auto) [place] # (Auto) Eos # (Auto) Baso # (Auto) PT INR APTT PTT Ratio Sodium Potassium Chloride Carbon Dioxide Anion Gap BUN Creatinine Est Cr Clr Drug Dosing Est GFR ( Amer) Est GFR (Non-Af Amer) BUN/Creatinine Ratio Glucose Calcium Magnesium Total Bilirubin AST ALT Alkaline Phosphatase Troponin I Total Protein Albumin Globulin Albumin/Globulin Ratio TSH Specimen Hemolysis Hepatitis C Ab Screen Pending (1) HTN (hypertension) Hypertension type: essential hypertension Qualified Code(s): I10 - Essential (primary) hypertension (2) HLD (hyperlipidemia) Hyperlipidemia type: pure hypercholesterolemia Qualified Code(s): E78.00 - Pure hypercholesterolemia, unspecified; E78.0 - Pure hypercholesterolemia
--- NOTE | 2019-05-11 12:55 | Discharge Summary ---
Date of Service May 11, 2019 Admission HPI Per Admitting Provider This is a 54-year-old male who has significant PMH of HTN, HLD, chronic back pain, MEY, obesity, gout who presents to [facility] from preop secondary to new onset A. fib. is at bedside. Last evening patient performed prep for colonoscopy who presented for procedure today. Was found to be in A. fib with RVR and therefore referred to ED. He is asymptomatic. Denies history of arrhythmia or A. fib in the past. Denies fever, chills, sweats, lightheadedness, dizziness, syncope, chest pain, palpitations, shortness of breath, cough, nausea, vomiting, diarrhea, abdominal pain. He did have loose bowels last night secondary to prep. He denies ETOH use, recreational drug use, recent travel. Denies FH of arrhythmia or MS, but father when patient was only 4 due to, "heart failure." Principal Diagnosis New onset atrial fibrillation Discharge Data Allergies Allergy/AdvReac Type Severity Reaction Status Date / Time No Known Allergies Allergy Unverified 05/10/19 10:39 Consultations 05/10/19 12:55 ED Decision to Admit Stat 05/10/19 13:29 Consult Cardiology Routine Hospital Course (1) Atrial fibrillation with RVR: 54-year-old man presented with atrial fibrillation with RVR. He had prepped for colonoscopy and this rhythm was found in the preoperative area prior to undergoing the procedure. He presented to the emergency room and was he had a normal CMP and TSH. Troponin was negative. A chest x-ray was performed revealing no acute cardiopulmonary disease. He was admitted to the hospitalist group and cardiology was consulted. A diltiazem drip and started on metoprolol 25 mg p.o. every 6 hours. He was given a heparin drip and an echocardiogram was ordered. Cardiology recommended that atrial fibrillation could have occurred with his colonoscopy prep, or perhaps he had atrial fibrillation for a longer duration. He had been multiple outpatient visits recently where an irregular heartbeat had not been detected. Systemic anticoagulation was recommended despite his [id number] score being 1. He was placed on Eliquis 5 mg p.o. twice daily his echocardiogram revealed an ejection fraction of 60 to 65% with normal left ventricular systolic function. There was mild concentric left ventricular hypertrophy noted. There was no evidence of atrial septal defect. There were no significant valve abnormalities. Doppler findings did not suggest pulmonary hypertension. He continues to do well and medications were adjusted including discontinuation of heparin with continuation of Eliquis and discontinuation of diltiazem drip with metoprolol tartrate reduced to 25 mg p.o. twice daily. An outpatient cardiology follow-up was recommended in 2 weeks time with ambulatory monitoring for further assessment of atrial fibrillation burden. At time of discharge a cipv-ol-slsi examination was performed revealing a hemodynamically stable and afebrile patient in no acute distress. He was mentating and ambulating at baseline and tolerating p.o. Cardiac exam revealed a regular rate and rhythm with no evidence of murmurs, gallops, or rubs. The patient was euvolemic with no evidence of pedal edema. Lungs were clear to auscultation bilaterally. Physical exam was otherwise unremarkable. He was discharged in stable condition with close primary care follow-up recommended. Total Time Total Time Spent Total Time Spent (In Minutes): 60 Total Time Includes: Examination of the Patient, Discharge Planning, Medication Reconciliation and Communication With Other Providers Discharge Plan Discharge Items Patient Disposition: Home - Self-Care Reason For Visit: NEW ONSET AFIB Discharge Diagnosis: New onset atrial fibrillation Activity: Resume your previous activity Non-emergency contact: Primary Care Provider Call non-emergency contact if: you have any medication questions, your symptoms worsen, your pain is not controlled, your pain is worsening, your pain is unusual for you, your pain is concerning for you and you have a fever Follow-up/Referrals: Fidel Pritchard DO [Family Service Assistant] - Garcia Jasso DO [Primary Care Provider] - Diet: Heart Healthy Addtl Attending Provider Instructions: Please take all medications as instructed on discharge list below. It is recommended that you follow-up with your primary care physician within one week of discharge from the hospital. Please follow-up with [facility] in 2-4 weeks as instructed. It was a pleasure taking care of you! Please call if you have any questions or problems. You can reach a [facility] hospitalist on duty at [facility] 24 hours a day by calling [phone]. Take care of yourself. Cely Still DO [facility] Pending Studies at Discharge: No Stand-Alone Forms: Work/School Release (ED), My [facility] Medications and DC Order Prescriptions: New apixaban 5 mg tablet 5 mg PO BID Qty: 60 RF: 1 metoprolol tartrate 25 mg Tablet 25 mg PO BID Qty: 60 RF: 1 Continued allopurinol 300 mg tablet 300 mg PO QAM RF: 0 simvastatin 20 mg tablet 20 mg PO QPM RF: 0 tramadol 50 mg tablet 50 mg PO BID RF: 0 felodipine 2.5 mg Tablet Extended Release 24 Hr 2.5 mg PO DAILY RF: 0 gabapentin 300 mg Capsule 300 mg PO TID RF: 0 lisinopril-hydrochlorothiazide 10-12.5 mg Tablet 1 tab PO DAILY RF: 0 duloxetine [Cymbalta] 20 mg Capsule,Delayed Release(Dr/Ec) 20 mg PO DAILY RF: 0 Discharge Orders: Discharge Order (Routine); Ordered 05/11/19 Ordered By: Cely Still Admission Data Admit Date/Time: 05/10/19 13:29 Attending Provider: Cely Still Admit Provider: Jeff Mariscal Primary Care Provider: Garcia Jasso Other Providers: Fidel Pritchard Other Interventions: Discharge Summary Assessment (RN) Last Done: 05/11/19 13:00 DC Date/Time DO NOT enter until pt leaves facility: 05/11/19 13:29
== END 2019-05-11 13:29 | disposition home or self-care (01) | DRG 310 ==
LOC: ED 10:00 → 2S 13:29 → SUATTDRO 13:29 → 2S 14:31